=== PATIENT | female | born 1990 | race Hispanic/Latino ===

== ENCOUNTER 2019-12-29 13:08 | Emergency (ER) | payer OTHER, SELFPAY ==
[2019-12-29] MEDS ORDERED: Ibuprofen 200 MG TAB ONE (16:52)
[2019-12-29] MEDS ORDERED: Acetaminophen 500 MG TAB ONE (16:52)
[2019-12-29] MEDS ORDERED: diphenhydrAMINE 25 MG CAP ONE (16:53)
--- NOTE | 2019-12-29 16:54 | CT ---
Head CT without contrast 12/29/2019: COMPARISON: None HISTORY: Frequent migraines, left-sided headache TECHNIQUE: Axial CT imaging at 5 mm intervals from vertex through skull base without contrast FINDINGS: The imaged paranasal sinuses and mastoid air cells are well-aerated. No displaced calvarial fracture is seen. No intracranial hemorrhage, midline shift, mass effect, or ventricular enlargement. If symptoms persist, nonemergent follow-up brain MRI may be beneficial. IMPRESSION: No acute findings.
== END 2019-12-29 17:24 | disposition home or self-care (01) ==
LOC: ERS 13:08
DX: R51 Headache (principal)
CPT/HCPCS: 70450; Q0163

== ENCOUNTER 2021-02-13 08:41 | Outpatient (CLI) | payer OTHER | END 2021-02-13 08:42 | disposition home or self-care (01) | LOC: BICULT 08:41 | PROVIDERS: ATTEND Family Medicine | DX: Z34.82 Encounter for supervision of other normal pregnancy, second trimester (principal); Z3A.22 22 weeks gestation of pregnancy | CPT/HCPCS: 76805 ==